=== PATIENT | male | born 1965 | race Two or more races ===

== ENCOUNTER 2020-10-11 08:13 | Outpatient (REF) | payer BC, SELFPAY | END 2020-10-11 08:14 | disposition home or self-care (01) | LOC: HO.LAB 08:13 | PROVIDERS: Visit Provider Internal Medicine | DX: Z20.828 Contact with and (suspected) exposure to other viral communicable diseases (principal) | CPT/HCPCS: C9803; U0003 ==

== ENCOUNTER 2024-05-05 10:19 | Outpatient (AMB) | payer BC, SELFPAY ==
--- NOTE | 2024-05-05 10:53 | HO.NEPHOV_ITS ---
Vital Signs 05/05/24 10:54 Height 5 ft 10 in Weight 243 lb BMI 34.9 BP 126/70 Blood Pressure Location Lt brachial Position Sitting Pulse 89 Pulse Source Pulse Oximeter Pulse Oximetry (%) 96 Oxygen Delivery Method Room Air Intake Visit Reasons: Follow up ? - old pt/ Conf Tow Motor Operator Required: No Accompanied by: Self / Same As Patient Allergies iodine Allergy (Unknown, Verified 05/05/24 10:56) Unknown HPI Comments Details: Moris is a pleasant 57-year-old man well known to me. He has a history of nephrolithiasis. Has a history of bladder cancer and underwent cystectomy and prostatectomy in 2017 followed by diverting urostomy. He has had recurrent renal stones. Back in 2020 twenty-four urine collection showed low citrate and high oxalate excretion with a volume of 2200 cc. He is on potassium citrate 10 mEq twice a day. He has no specific complaints today. He is still seeing small stones in the bag once or twice a month. [facility] Social History (Updated 05/05/24 @ 10:57 by SAPPHIRE Oh) Patient Tobacco Use Status: Never used Tobacco Physical Exam Vital Signs: Last Vital Signs Pulse 89 05/05/24 10:54 BP 126/70 05/05/24 10:54 Pulse Ox 96 05/05/24 10:54 Oxygen Delivery Method Room Air 05/05/24 10:54 BMI result Body Mass Index 34.9 Const General: comfortable; No acute distress Orientation/consciousness: patient oriented x3 Eyes General: appearance normal, both eyes and all related structures Visual Guardado: normal visual guardado by confrontation Neck Neck: Yes supple and Yes no JVD Resp Effort & Inspection: normal respiratory effort and respiratory effort not decreased Auscultation: rhonchi Cardio Palpation: no palpable S3 and no palpable S4 Heart sounds: no rubs GI Inspection: Yes normal to inspection Palpation (GI): Soft to palpation Percussion: Yes normal to percussion Auscultation: normal bowel sounds General: Yes no CVA tenderness Back/Spine/Pelvis Back: no CVA tenderness Skin General skin exam: no petechiae and no purpura Neuro General: patient oriented x3 and no focal motor deficits Extrem General: No clubbing and No edema Results Reviewed Results Reviewed: Labs from [facility] reviewed. 04/16/2024. Potassium 5.0 BUN 17 creatinine 0.9. Calcium 9.3. A1c 6.4. Cholesterol 190 triglycerides 244 Nephrology Results: No Data to Display Assessment & Plan Assessment & Plan (1) Nephrolithiasis: Code(s): N20.0 - Calculus of kidney Category: Medical (2) Bladder cancer: Comment: Status post diverting urostomy Code(s): C67.9 - Malignant neoplasm of bladder, unspecified Category: Medical Plan 58-year-old man with a bladder cancer and diuretic urostomy with recurrent renal stones. At present time renal function stable at baseline. Since he has recurrent renal stones I will obtain a 24 urine collection. Encouraged him to stay on a low-salt diet. Increase his fluid intake to maintain a urine output of 2 L. We will continue potassium citrate to increase the acetate content in the urine. Obtain follow-up ultrasonogram of the kidney Orders: Orders Sodium, 24Hr Urine Group Today N20.0 - Calculus of kidney Oxalate, 24 Hr Today N20.0 - Calculus of kidney Citric Acid 24hr Urine Today N20.0 - Calculus of kidney Uric Acid, 24Hr Urine Group Today N20.0 - Calculus of kidney Creatinine, 24 Hr Group Today N20.0 - Calculus of kidney Calcium, 24 Hr Ur Today N20.0 - Calculus of kidney US renal BI Today N20.0 - Calculus of kidney Coding Level of Care Code Est Pt Level 4 (87712) Diagnoses Nephrolithiasis N20.0 Bladder cancer C67.9
[2024-05-05 10:54] VITALS: BP 126/70; PULSE 89; O2SAT 96; BMI 34.9
== END 2024-05-05 11:23 | disposition home or self-care (01) ==
PROVIDERS: PCP Internal Medicine; Visit Provider Internal Medicine Hypertension Specialist
DX: N20.0 Calculus of kidney (principal); C67.9 Malignant neoplasm of bladder, unspecified
CPT/HCPCS: 99214

== ENCOUNTER → 2024-05-05 10:19 | Outpatient (BNVA) | payer BC, SELFPAY | PROVIDERS: PCP Internal Medicine; Visit Provider Internal Medicine Hypertension Specialist ==

== ENCOUNTER 2024-06-23 10:57 | Outpatient (AMB) | payer BC, SELFPAY ==
--- NOTE | 2024-06-23 11:00 | HO.NEPHOV ---
Vital Signs 06/23/24 11:02 Height 5 ft 10 in Weight 240 lb BMI 34.4 BP 120/64 Blood Pressure Location Rt brachial Position Sitting Pulse 82 Pulse Source Pulse Oximeter Pulse Oximetry (%) 97 Oxygen Delivery Method Room Air Intake Visit Reasons: Nephrolithiasis-Confirmed Director Of Psychiatry Required: No Accompanied by: Self / Same As Patient Allergies iodine Allergy (Unknown, Verified 06/23/24 11:04) Unknown Medication List - Last Reconciled 06/23/24 by Jony Chaparro MD potassium citrate ER 10 mEq PO BID 90 days HPI Comments Details: Moris is a pleasant 57-year-old man well known to me. He has a history of nephrolithiasis. Has a history of bladder cancer and underwent cystectomy and prostatectomy in 2017 followed by diverting urostomy. He has had recurrent renal stones. Back in 2020 twenty-four urine collection showed low citrate and high oxalate excretion with a volume of 2200 cc. He is on potassium citrate 10 mEq twice a day. He has no specific complaints today. He is still seeing small stones in the bag once or twice a month. 06/13/24 Doing well NO new issues [facility] Social History Patient Tobacco Use Status: Never used Tobacco Physical Exam Vital Signs: Last Vital Signs Pulse 82 06/23/24 11:02 BP 120/64 06/23/24 11:02 Pulse Ox 97 06/23/24 11:02 Oxygen Delivery Method Room Air 06/23/24 11:02 BMI result Body Mass Index 34.4 Const General: comfortable; No acute distress Orientation/consciousness: patient oriented x3 Eyes General: appearance normal, both eyes and all related structures Visual Doyle: normal visual doyle by confrontation Neck Neck: Yes supple and Yes no JVD Resp Effort & Inspection: normal respiratory effort and respiratory effort not decreased Auscultation: rhonchi Cardio Palpation: no palpable S3 and no palpable S4 Heart sounds: no rubs GI Inspection: Yes normal to inspection Palpation (GI): Soft to palpation Percussion: Yes normal to percussion Auscultation: normal bowel sounds General: Yes no CVA tenderness Back/Spine/Pelvis Back: no CVA tenderness Skin General skin exam: no petechiae and no purpura Neuro General: patient oriented x3 and no focal motor deficits Extrem General: No clubbing and No edema Results Reviewed Results Reviewed: [facility] in March 2024 ( [facility]) Both kidneys have a 4 mm stone in lower pole No hydro Nephrology Results: No Data to Display Assessment & Plan Assessment & Plan (1) Nephrolithiasis: Code(s): N20.0 - Calculus of kidney Category: Medical (2) Bladder cancer: Comment: Status post diverting urostomy Code(s): C67.9 - Malignant neoplasm of bladder, unspecified Category: Medical Plan 58-year-old man with a bladder cancer and diuretic urostomy with recurrent renal stones. At present time renal function stable at baseline. Since he has recurrent renal stones I obtained a 24 urine collection. Citrate excretion is low at 255 Na/UA and Ca excretion are acceptable Oxalate not doen by lab Encouraged him to stay on a low-salt diet. Increase his fluid intake to maintain a urine output of 2 L. We will continue potassium citrate to increase the citrate content in the urine. Encouraged to drink more lemonade Orders: Orders Basic Metabolic Panel 1 Year N20.0 - Calculus of kidney UA and rflx microscopic 1 Year N20.0 - Calculus of kidney Coding Level of Care Code Est Pt Level 4 (92594) Diagnoses Nephrolithiasis N20.0 Bladder cancer C67.9
[2024-06-23 11:02] VITALS: BP 120/64; PULSE 82; O2SAT 97; BMI 34.4
== END 2024-06-23 11:15 | disposition home or self-care (01) ==
PROVIDERS: PCP Internal Medicine; Visit Provider Internal Medicine Hypertension Specialist
DX: N20.0 Calculus of kidney (principal); C67.9 Malignant neoplasm of bladder, unspecified
CPT/HCPCS: 99214

== ENCOUNTER → 2024-06-23 10:57 | Outpatient (BNVA) | payer BC, SELFPAY | PROVIDERS: PCP Internal Medicine; Visit Provider Internal Medicine Hypertension Specialist ==

== ENCOUNTER 2025-06-22 09:02 | Outpatient (AMB) | payer BC, SELFPAY ==
--- NOTE | 2025-06-22 09:19 | HO.NEPHOV ---
Vital Signs 06/22/25 09:20 Height 5 ft 10 in Weight 240 lb BMI 34.4 BP 120/64 Blood Pressure Location Lt brachial Position Sitting Pulse 80 Pulse Source Pulse Oximeter Pulse Oximetry (%) 98 Oxygen Delivery Method Room Air Intake Visit Reasons: Nephrolithiasis Veterinary Technician Assistant Required: No Accompanied by: Self / Same As Patient Allergies iodine Allergy (Unknown, Verified 06/22/25 09:20) Unknown Medication List - Last Reconciled 06/22/25 by Jony Chaparro MD potassium citrate ER 10 mEq PO BID HPI Comments Details: Moris is a pleasant 57-year-old man well known to me. He has a history of nephrolithiasis. Has a history of bladder cancer and underwent cystectomy and prostatectomy in 2017 followed by diverting urostomy. He has had recurrent renal stones. Back in 2020 twenty-four urine collection showed low citrate and high oxalate excretion with a volume of 2200 cc. He is on potassium citrate 10 mEq twice a day. He has no specific complaints today. He is still seeing small stones in the bag once or twice a month. 06/13/24 Doing well ;NO new issues 06/22/25 Overall doing well. NO new issues Hasnt seen Urology /Dr Colindres since 2019 [facility] Social History Patient Tobacco Use Status: Never used Tobacco Physical Exam Vital Signs: Last Vital Signs Pulse 80 06/22/25 09:20 BP 120/64 06/22/25 09:20 Pulse Ox 98 06/22/25 09:20 Oxygen Delivery Method Room Air 06/22/25 09:20 BMI result Body Mass Index 34.4 Const General: comfortable; No acute distress Orientation/consciousness: patient oriented x3 Eyes General: appearance normal, both eyes and all related structures Visual Guardado: normal visual guardado by confrontation Neck Neck: Yes supple and Yes no JVD Resp Effort & Inspection: normal respiratory effort and respiratory effort not decreased Auscultation: rhonchi Cardio Palpation: no palpable S3 and no palpable S4 Heart sounds: no rubs GI Inspection: Yes normal to inspection Palpation (GI): Soft to palpation Percussion: Yes normal to percussion Auscultation: normal bowel sounds General: Yes no CVA tenderness Back/Spine/Pelvis Back: no CVA tenderness Skin General skin exam: no petechiae and no purpura Neuro General: patient oriented x3 and no focal motor deficits Extrem General: No clubbing and No edema Assessment & Plan Assessment & Plan (1) Nephrolithiasis: Code(s): N20.0 - Calculus of kidney Category: Medical (2) Bladder cancer: Comment: Status post diverting urostomy Code(s): C67.9 - Malignant neoplasm of bladder, unspecified Category: Medical Plan 59-year-old man with a bladder cancer and diuretic urostomy with recurrent renal stones. At present time renal function stable at baseline. 24 urine collection showed Citrate excretion is low at 255 Na/UA and Ca excretion are acceptable Oxalate not done by lab Encouraged him to stay on a low-salt diet. Increase his fluid intake to maintain a urine output of 2 L. We will continue potassium citrate to increase the citrate content in the urine. Encouraged to drink more lemonade Cr and serum K are stable Orders: Orders Basic Metabolic Panel 1 Year N20.0 - Calculus of kidney UA and rflx microscopic Today N20.0 - Calculus of kidney Coding Level of Care Code Est Pt Level 4 (41340) Diagnoses Nephrolithiasis N20.0 Bladder cancer C67.9
[2025-06-22 09:20] VITALS: BP 120/64; PULSE 80; O2SAT 98; BMI 34.4
--- OUTSIDE RECORDS SUMMARY | 2025-06-22 09:25 | XMS_ITS | Clinical Summary ---
Author Organization [facility] Address [address] [place] [address] Phone Care Team Providers Care Worm Farmer Name Role Phone Joseph Keys MD Primary Care Provider Allergies Active Allergy Reactions Criticality Noted Date Comments Iodine Other (see comments) 07/03/2018 Medications potassium citrate 10 MEQ (1080 MG) CR tablet TAKE 1 TABLET BY MOUTH 2 TIMES A DAY WITH MEALS (BREAKFAST AND DINNER) DO NOT CRUSH, CHEW, OR SPLIT. 180 tablet 1 05/08/2023 Active Active Problems Problem Noted Date Diagnosed Date Malignant neoplasm of urinary bladder 09/02/2015 Overview (03/03/2021): Malignant tumor of urinary bladder Malignant tumor of urinary bladder Immunizations Immunization Administration Dates Next Due Influenza, Quadrivalent, Pf, Pediatrics 12/02/19 16 Family History Medical History Relation Comments Cancer Father Relation Status Comments Father Mother Alive Social History Tobacco Use Types Packs/Day Years Used Date Smoking Tobacco: Never Smokeless Tobacco: Never Tobacco Cessation:Counseling Given: No Alcohol Use Standard Drinks/Week Comments Yes 0 (1 standard drink = 0.6 oz pur e alcohol) Sex and Gender Information Value Date Recorded Sex Assigned at Not on file Legal Sex Male 1:25 PM EST Gender Identity Not on file Sexual Orientation Not on file Last Filed Vital Signs Vital Sign Reading Time Taken Comments Blood Pressure 112/70 05/13/2023 12:58 PM EDT Pulse 73 05/13/2023 12:58 PM EDT Temperature - - Respiratory Rate - - Oxygen Saturation 98% 05/13/2023 12:58 PM EDT Inhaled Oxygen Concentration - - Weight 113 kg (250 lb) 05/10/2022 1:52 PM EDT Height - - Body Mass Index - - Plan of Treatment Health Maintenance Due Date Last Done Comments Pneumococcal Vaccine: 50+ Ye ars (1 of 2 - PCV) 1983 Colorectal Cancer Screening: Annual FOBT 2013 Colorectal Cancer Screening: Colonoscopy 2013 Colorectal Cancer Screening: Sigmoidoscopy 2013 Influenza Vaccine (#1) 2025 12/02/2015 Hepatitis B Vaccine Aged Out No longe r eligible based on patient's age to complete this topic [place] [address] [place] [id number] [facility] Care Teams Worm Farmer Relationship Specialty Start Date End Date Joseph Keys MD [address] [place] [phone] PCP - General Internal Medicine 01/24/21
--- OUTSIDE RECORDS SUMMARY | 2025-06-22 09:25 | XMS_ITS | Encounter Summary ---
Author Organization [facility] Address [address] [address] [place] [phone] Phone Care Team Providers Care Public Relations Director Name Role Phone Rudy Carrizales MD Primary Care Provider [phone] Aayush Benson MD, PhD Unavailable [phone] Rudy Carrizales MD Primary Care Provider [phone] Danitza Garcia MD Primary Care Provider Joseph Keys MD Primary Care Provider [phone] Encounter Details Date Type Department Care Team (Late st Contact Info) Description 05/29/2018 Procedure [facility], Ct Scan - [address] [address] Social History Tobacco Use Types Packs/Day Years Used Date Smoking Tobacco: Never Sex and Gender Information Value Date Recorded Sex Assigned at Not on file Legal Sex Male 3:36 PM EDT Gender Identity Not on file Sexual Orientation Not on file documented as of this encounter Plan of Treatment Not on file documented as of this encounter Visit Diagnoses Not on filedocumented in this encounter Care Teams Public Relations Director Relationship Specialty Start Date End Date Rudy Carrizales MD [email or web address] PCP - General Family Medicine 08/16/15 12/06/19 Rudy Carrizales MD [address] [place], [place] [id number] [place] [id number] [email or web address] PCP - General Family Medicine 12/07/19 04/07/20 Danitza Garcia MD [address] [place] [address] [place] [phone] [email or web address] PCP - General Internal Medicine 04/08/20 12/11/20 Joseph Keys MD [address] [place] [phone] [email or web address] PCP - General Internal Medicine 12/12/20 Aayush Benson MD, PhD [address] [place] [address] [id number] [place] [address] [email or web address] Primary Oncologist Medical Oncology 03/02/16 documented as of this encounter Additional Source Comments The information contained in this document represents components of the legal health record. It is not the complete legal health record.[facility]
== END 2025-06-22 09:43 | disposition home or self-care (01) ==
LOC: HO.HKA 09:02
PROVIDERS: PCP Internal Medicine; Visit Provider Internal Medicine Hypertension Specialist
DX: N20.0 Calculus of kidney (principal); C67.9 Malignant neoplasm of bladder, unspecified
CPT/HCPCS: 99214